=== PATIENT | female | born 1935 | race Caucasian/White ===

== ENCOUNTER 2017-01-15 09:40 | Inpatient (IN) | payer MEDICARE, OTHER ==
[~2017-01-15] VITALS: Ht 149.9 cm; Wt 47.6 kg
[2017-01-15] MEDS ORDERED: diphenhydrAMINE 50 MG/1 ML VIAL IV ONE ×2 (10:15→11:45)
[2017-01-15 10:20] LABS: BASOPHILS % (AUTO) 0.3 % (0.0-2.0); EOSINOPHILS % (AUTO) 0.1 % (0.0-7.0); HEMATOCRIT 24.8 % (37-47); HEMOGLOBIN 7.8 G/DL (12.0-16.0); LYMPHOCYTES # (AUTO) 0.9 K/UL (0.8-4.8); LYMPHOCYTES % (AUTO) 9.5 % (20.5-51.5); MEAN CORPUSCULAR HEMOGLOBIN 22.8 UUG (27.0-31.0); MEAN CORPUSCULAR HGB CONC 32 g/dL (32.0-37.0); MONOCYTES # (AUTO) 0.1 K/UL (0.1-1.30); MONOCYTES % (AUTO) 0.8 % (0.0-11.0); NEUTROPHILS # (AUTO) 8.3 K/UL (1.8-8.9); NEUTROPHILS % (AUTO) 89.3 % (38.5-71.5); PLATELET COUNT (AUTO) 406 K/UL (150-450); RED BLOOD CELL COUNT(AUTO) 3.44 MIL/UL (4.2-5.4); WHITE BLOOD COUNT (AUTO) 9.3 K/UL (4.0-11.2)
--- NOTE | 2017-01-15 10:21 | NUR ---
pt is in room #2a. dr Harris evaluated the pt.
[2017-01-15] MEDS ORDERED: diphenhydrAMINE 50 MG/1 ML VIAL ONE ×2 (10:22→11:55)
[2017-01-15 10:26] LABS: CARBON DIOXIDE 23 mmol/L (21-32); CHLORIDE 97 mmol/L (98-107); CREATININE 2.8 mg/dL (0.6-1.3); GLUCOSE 265 mg/dL (74-106); POTASSIUM 4.5 mmol/L (3.5-5.1); UREA NITROGEN, BLOOD 43 mg/dL (7-18)
[2017-01-15] MEDS ORDERED: IV NORMAL SALINE 1000 ML BAG IV ONE (10:30)
[2017-01-15 10:33] LABS: ALANINE AMINOTRANSFERASE 9 U/L (14-59); ALKALINE PHOSPHATASE 43 U/L (50-136); ASPARTATE AMINOTRANSFERASE 8 U/L (15-37); BILIRUBIN,DIRECT < 0.1 mg/dL (0.0-0.2); BILIRUBIN,TOTAL 0.2 mg/dL (0.2-1.0); TOTAL PROTEIN, SERUM 6.8 g/dL (6.4-8.2)
[2017-01-15 12:09] LABS: BAND % (MANUAL) 3 % (0-10); LYMPHOCYTES % (MANUAL) 10 % (20-40); NEUTROPHILS % (MANUAL) 87 % (42-75)
[2017-01-15] MEDS ORDERED: Z GUARD REMEDY PASTE 57 GM TUBE TOP PRN (12:15)
[2017-01-15] MEDS ORDERED: IV NS 1000 ML 1,000 ML IV PRN (12:15)
[2017-01-15] MEDS ORDERED: diphenhydrAMINE 50 MG/1 ML VIAL IV PRN (12:15)
[2017-01-15] MEDS ORDERED: ONDANSETRON 4 MG/2 ML VIAL IV PRN (12:15)
[2017-01-15] MEDS ORDERED: MAGNESIUM HYDROXIDE 30 ML LIQUID UDC PO PRN (12:15)
[2017-01-15] MEDS ORDERED: CLOTRIMAZOLE/BETAMET DIPROP CREAM 15 GM TUBE TOP SCH (12:15)
[2017-01-15] MEDS ORDERED: MORPHINE SULFATE 2 MG/1 ML DISP.SYRIN IV PRN (12:15)
--- NOTE | 2017-01-15 12:30 | NUR ---
report was given to rn m/s. pt was transfered to m/s room #219.
[2017-01-15 12:49] LABS: IRON, SERUM 9 ug/dL (50-175)
--- NOTE | 2017-01-15 12:50 | NUR ---
Patient arrived on unit via [facility] with RN. Patient admitting diagnosis : Dehydration and Acute kidney injury. Initial compliant for patient has generalized rash with itchiness. Patient has history of psoriasis. ER doctor believes it is a flair up. Patient given benedryl and 1 liter normal saline. Patient is also noted slightly anemic. Hgb 7.8 and Hct 24.8. Patient BP noted on the lower end in ER 96/53. Will reassess.
[2017-01-15 13:00] VITALS: BP 106/52
[2017-01-15] MEDS: TRIAMCINOLONE ACET 0.1% CREAM 15 GM TUBE TOP SCH ×2 (13:15→17:40)
[2017-01-15] MEDS ORDERED: MIRALAX 17 GM POWD.PACK PO PRN (13:15)
[2017-01-15] MEDS ORDERED: BISACODYL 5 MG TABLET.DR PO PRN (13:15)
[2017-01-15] MEDS: FERROUS SULFATE 325 MG TABEC PO SCH ×2 (14:13→21:00)
[2017-01-15] MEDS: DOCUSATE SODIUM 100 MG CAPSULE PO SCH ×2 (14:13→21:00)
--- NOTE | 2017-01-15 15:32 | NUR ---
Patient refusing skin scraping at this time. Also refusing chest xray at this time.
[2017-01-15 16:00] VITALS: BP 95/43
--- NOTE | 2017-01-15 17:42 | NUR ---
Patient continues to refuse chest x-ray. Patient educated on the importance of the getting diagnostic studies but patient continues to refuse.
[2017-01-15 18:20] LABS: HEMATOCRIT 24.4 % (37-47); HEMOGLOBIN 7.6 G/DL (12.0-16.0)
[2017-01-15 20:39] VITALS: BP 116/44
[2017-01-16] VITALS (9 sets, daily range): BP systolic 96–116; BP diastolic 39–62
[2017-01-16 06:30] LABS: BASOPHILS # (AUTO) 0.1 K/uL (0.0-8.0); BASOPHILS % (AUTO) 0.5 % (0.0-2.0); EOSINOPHILS # (AUTO) 0.2 K/uL (0.0-0.7); EOSINOPHILS % (AUTO) 1.4 % (0.0-7.0); LYMPHOCYTES # (AUTO) 2.4 K/UL (0.8-4.8); LYMPHOCYTES % (AUTO) 22.2 % (20.5-51.5); MEAN CORPUSCULAR HEMOGLOBIN 22.7 UUG (27.0-31.0); MEAN CORPUSCULAR HGB CONC 31 g/dL (32.0-37.0); MEAN CORPUSCULAR VOLUME 72.2 FL (81.0-99.0); MONOCYTES # (AUTO) 1.1 K/UL (0.1-1.30); MONOCYTES % (AUTO) 10.1 % (0.0-11.0); NEUTROPHILS # (AUTO) 6.9 K/UL (1.8-8.9); NEUTROPHILS % (AUTO) 65.8 % (38.5-71.5); PLATELET COUNT (AUTO) 371 K/UL (150-450); RED BLOOD CELL COUNT(AUTO) 3.07 MIL/UL (4.2-5.4); WHITE BLOOD COUNT (AUTO) 10.7 K/UL (4.0-11.2)
[2017-01-16 06:33] LABS: ALANINE AMINOTRANSFERASE 11 U/L (14-59); ALKALINE PHOSPHATASE 40 U/L (50-136); ASPARTATE AMINOTRANSFERASE 15 U/L (15-37); BILIRUBIN,TOTAL 0.2 mg/dL (0.2-1.0); CARBON DIOXIDE 22 mmol/L (21-32); CHLORIDE 108 mmol/L (98-107); CHOLESTEROL 137 mg/dL (<200); CREATININE 2.3 mg/dL (0.6-1.3); GLUCOSE 96 mg/dL (74-106); HDL CHOLESTEROL 54 mg/dL (40-60); PHOSPHOROUS 3.3 mg/dL (2.5-4.9); POTASSIUM 4.7 mmol/L (3.5-5.1); TOTAL PROTEIN, SERUM 6.1 g/dL (6.4-8.2); TRIGLYCERIDES 70 MG/DL (30-150); UREA NITROGEN, BLOOD 34 mg/dL (7-18)
[2017-01-16 06:34] LABS: HEMATOCRIT 22.2 % (37-47)
--- NOTE | 2017-01-16 06:58 | NUR ---
Paged Dr. Robledo for critical lab values, patient current H/H 7.0 & 22.2. Patient is anxious at this time, vital signs are WNL. Will continue to monitor.
[2017-01-16 07:07] LABS: THYROID STIMULATING HORMONE 0.407 mIU/mL (0.358-3.740)
[2017-01-16] MEDS: DOCUSATE SODIUM 100 MG CAPSULE PO SCH ×2 (08:22→20:26)
[2017-01-16] MEDS: FERROUS SULFATE 325 MG TABEC PO SCH ×2 (08:22→20:26)
[2017-01-16] MEDS: PANTOPRAZOLE SODIUM 40 MG TABLET.DR PO SCH (08:22)
[2017-01-16] MEDS: TRIAMCINOLONE ACET 0.1% CREAM 15 GM TUBE TOP SCH ×2 (08:23→17:27)
--- NOTE | 2017-01-16 08:30 | NUR ---
Dr. Masters notified in person of latest HH results.
[2017-01-16 11:05] LABS: BAND % (MANUAL) 2 % (0-10); EOSINOPHILS % (MANUAL) 1 % (0-8); LYMPHOCYTES % (MANUAL) 23 % (20-40); MONOCYTES % (MANUAL) 9 % (2-10); NEUTROPHILS % (MANUAL) 65 % (42-75)
[2017-01-16 11:31] LABS: *OCCULT BLOOD STOOL NEGATIVE (NEGATIVE)
[2017-01-16 12:30] LABS: *BILIRUBIN,URIN NEGATIVE (NEGATIVE); *BLOOD, URINE 2+ (NEGATIVE); *CLARITY,URINE CLOUDY (CLEAR); *COLOR,URINE YELLOW (YELLOW); *KETONES,URINE NEGATIVE (NEGATIVE); *PROTEIN,URINE 2+ (NEGATIVE); *UROBILINOGEN,URINE 0.2 E.U./dl (NORMAL); LEUKOCYTE ESTERASE ,URINE 3+ (NEGATIVE); NITRITE, URINE NEGATIVE (NEGATIVE); UGLUCOSE NEGATIVE (NEGATIVE)
[2017-01-16 12:40] LABS: *CREATININE,URINE 36.2 mg/dL (30-125); *URINE TOTAL PROTEIN RANDOM 51.5 mg/dL (<150/24HR)
[2017-01-16 12:42] LABS: BACTERIA,URINE MANY /HPF (NONE SEEN); RBC,URINE 20-50 /HPF (0-3); SQUAMOUS EPITHELIAL CELL,UR MANY /HPF (NONE SEEN); WBC,URINE TNTC /HPF (0-3)
--- NOTE | 2017-01-16 17:48 | NUR ---
Attempts to call [facility] but unable. telephone provided by daughter. will endorse to incoming shift. if needed it.
[2017-01-17 04:00] VITALS: BP 136/62
--- NOTE | 2017-01-17 05:47 | NUR ---
Patient is on continuos IVF NS at 60ml/hr but refused to receive another bag of Normal Saline intravenously. Also refused Sunday wound photo, & refused blood draw for today's morning lab test.
--- NOTE | 2017-01-17 06:48 | NUR ---
Called lab to re-try blood draw at 9AM today.
--- NOTE | 2017-01-17 07:10 | NUR ---
RECEIVED REPORT FROM BRIDGE RIGGER, PATIENT IN BED AWAKE, NO EVIDENCE OF DISTRESS NOTED, BED IN LOW POSITION, SIDE RAILS UP X2.
[2017-01-17] MEDS ORDERED: LEVOFLOXACIN 250MG /D5W 250 MG in PREMIXED 1 EACH IV SCH (08:00)
[2017-01-17] MEDS: PANTOPRAZOLE SODIUM 40 MG TABLET.DR PO SCH (09:00)
[2017-01-17] MEDS: FERROUS SULFATE 325 MG TABEC PO SCH (09:00)
[2017-01-17] MEDS ORDERED: VANCOMYCIN IV 750 MG in IV DEXTROSE 5% 250 ML IV ONE (09:00)
[2017-01-17] MEDS: TRIAMCINOLONE ACET 0.1% CREAM 15 GM TUBE TOP SCH (09:00)
[2017-01-17] MEDS: DOCUSATE SODIUM 100 MG CAPSULE PO SCH (09:00)
[2017-01-17 09:09] LABS: BASOPHILS # (AUTO) 0.1 K/uL (0.0-8.0); BASOPHILS % (AUTO) 0.7 % (0.0-2.0); EOSINOPHILS # (AUTO) 0.3 K/uL (0.0-0.7); EOSINOPHILS % (AUTO) 2.7 % (0.0-7.0); HEMATOCRIT 29.2 % (37-47); HEMOGLOBIN 9.2 G/DL (12.0-16.0); LYMPHOCYTES # (AUTO) 2.8 K/UL (0.8-4.8); LYMPHOCYTES % (AUTO) 25.5 % (20.5-51.5); MEAN CORPUSCULAR HEMOGLOBIN 22.9 UUG (27.0-31.0); MEAN CORPUSCULAR HGB CONC 31 g/dL (32.0-37.0); MEAN CORPUSCULAR VOLUME 72.9 FL (81.0-99.0); MONOCYTES # (AUTO) 1.1 K/UL (0.1-1.30); MONOCYTES % (AUTO) 9.7 % (0.0-11.0); NEUTROPHILS # (AUTO) 6.7 K/UL (1.8-8.9); NEUTROPHILS % (AUTO) 61.4 % (38.5-71.5); PLATELET COUNT (AUTO) 457 K/UL (150-450); RED BLOOD CELL COUNT(AUTO) 4.01 MIL/UL (4.2-5.4)
[2017-01-17 09:37] LABS: ALANINE AMINOTRANSFERASE 13 U/L (14-59); ALKALINE PHOSPHATASE 48 U/L (50-136); ASPARTATE AMINOTRANSFERASE 15 U/L (15-37); BILIRUBIN,TOTAL 0.3 mg/dL (0.2-1.0); CARBON DIOXIDE 23 mmol/L (21-32); CHLORIDE 106 mmol/L (98-107); CREATININE 2.2 mg/dL (0.6-1.3); GLUCOSE 101 mg/dL (74-106); MAGNESIUM 1.8 mg/dL (1.8-2.4); PHOSPHOROUS 2.6 mg/dL (2.5-4.9); POTASSIUM 4.7 mmol/L (3.5-5.1); TOTAL PROTEIN, SERUM 6.8 g/dL (6.4-8.2); UREA NITROGEN, BLOOD 28 mg/dL (7-18)
[2017-01-17] MEDS ORDERED: HYDROCORTISONE 2.5% CREAM 20 GM TUBE TOP PRN (10:00)
[2017-01-17] MEDS ORDERED: hydrOXYzine HCL 10 MG/5 ML UDC PO PRN (10:00)
[2017-01-17 10:01] LABS: EOSINOPHILS % (MANUAL) 3 % (0-8); LYMPHOCYTES % (MANUAL) 28 % (20-40); MONOCYTES % (MANUAL) 7 % (2-10); NEUTROPHILS % (MANUAL) 62 % (42-75)
[2017-01-17] MEDS ORDERED: hydrOXYzine HCL 10 MG TABLET PO PRN (10:30)
[2017-01-17 11:12] LABS: *IMMUNOGLOBULIN G, SERUM 770 mg/dL (700-1600); IMMUNOGLOBULIN A, SERUM 155 mg/dL (64-422); IMMUNOGLOBULIN M, SERUM 59 mg/dL (26-217)
[2017-01-17] MEDS ORDERED: PRED5DRO16 EACHEYE (11:14)
[2017-01-17] MEDS ORDERED: PRED20TA PO (11:14)
[2017-01-17] MEDS ORDERED: DESO15CR11 TP (11:14)
[2017-01-17] MEDS ORDERED: HYDR10SY12 PO (11:14)
[2017-01-17] MEDS ORDERED: HYDR30CR77 RC (11:14)
[2017-01-17] MEDS ORDERED: HYDROCORTISONE 2.5 % RECTAL CREAM 28.35 GM TUBE RC PRN (11:30)
--- NOTE | 2017-01-17 12:00 | NUR ---
IV FOUND INFILTRATED, IV REMOVED AND RESTARTED BY DIRECTOR
[2017-01-17 13:07] LABS: A/G RATIO 1.1 (0.7-1.7); ALBUMIN 2.7 g/dL (2.9-4.4); ALPHA-1-GLOBULIN 0.4 g/dL (0.0-0.4); ALPHA-2-GLOBULIN 0.7 g/dL (0.4-1.0); BETA GLOBULIN 0.8 g/dL (0.7-1.3); GAMMA GLOBULIN 0.7 g/dL (0.4-1.8); GLOBULIN, TOTAL 2.5 g/dL (2.2-3.9); M-SPIKE Not Observed g/dL (Not Observed)
--- NOTE | 2017-01-17 14:15 | NUR ---
PATIENT REFUSED TO HAVE SCABIES TESTING PERFORMED
--- NOTE | 2017-01-17 15:25 | NUR ---
PATIENT REQUEST TO LEAVE AGAINST MEDICAL ADVICE, IV REMOVED, BELONGING RECONCILED, MEDICATIONS RETRIEVED FROM PHARMACY AND RETURNED TP PATIENT, PATIENT HAS LEFT THE UNIT.
[2017-01-17] MEDS ORDERED: SULFAMETH/TRIMETH 800/160 MG TABLET PO SCH (21:00)
[2017-01-18] MEDS ORDERED: predniSONE 20 MG TABLET PO SCH (08:00)
[2017-01-18] MEDS ORDERED: DESOXIMETASONE 0.25% TOP SCH (09:00)
[2017-01-18] MEDS ORDERED: prednisoLONE ACET 1% OPHT DROP 5 ML BOTTLE EACHEYE SCH (09:00)
== END 2017-01-17 15:25 | disposition left against medical advice (07) | DRG 915 ==
LOC: ER 09:40 → MED 12:27
PROVIDERS: ADMIT Internal Medicine; ATTEND Internal Medicine
PROC: 30233N1 Transfusion of Nonautologous Red Blood Cells into Peripheral Vein, Percutaneous Approach (ICD-10-PCS; principal; 2017-01-16)
DX: T78.40XA Allergy, unspecified, initial encounter (principal); N17.0 Acute kidney failure with tubular necrosis; C78.00 Secondary malignant neoplasm of unspecified lung; E44.0 Moderate protein-calorie malnutrition; I27.2 Other secondary pulmonary hypertension; N39.0 Urinary tract infection, site not specified; E86.0 Dehydration; E83.51 Hypocalcemia; D50.9 Iron deficiency anemia, unspecified; H54.0 Blindness, both eyes; B96.20 Unspecified Escherichia coli [E. coli] as the cause of diseases classified elsewhere; I34.1 Nonrheumatic mitral (valve) prolapse; Z85.038 Personal history of other malignant neoplasm of large intestine; I12.9 Hypertensive chronic kidney disease with stage 1 through stage 4 chronic kidney disease, or unspecified chronic kidney disease; N18.9 Chronic kidney disease, unspecified; K21.9 Gastro-esophageal reflux disease without esophagitis; Z88.6 Allergy status to analgesic agent; Z88.1 Allergy status to other antibiotic agents; Z91.010 Allergy to peanuts; Z68.21 Body mass index [BMI] 21.0-21.9, adult; L40.9 Psoriasis, unspecified; Z90.49 Acquired absence of other specified parts of digestive tract; Z85.528 Personal history of other malignant neoplasm of kidney; Z85.41 Personal history of malignant neoplasm of cervix uteri; K59.00 Constipation, unspecified; H54.8 Legal blindness, as defined in USA; X58.XXXA Exposure to other specified factors, initial encounter; L29.9 Pruritus, unspecified; I25.10 Atherosclerotic heart disease of native coronary artery without angina pectoris
CPT/HCPCS: 36415; 76770; 82784; 83550; 83735; 84100; 84155; 84156; 84165; 84300; 84443; 85018; 85025; 85730; 86334; 86850; 86900; 86901; 86920; 87077; 87086; 93307; 97116; 97530; A4663; J1200; J2650; J3370; J7030; J7040; J7060; P9016-BL; P9021